=== PATIENT | male | born 1995 | race Caucasian/White ===

== ENCOUNTER 2019-06-18 18:52 | Inpatient (IN) ==
[2019-06-18] MEDS ORDERED: ZOFRAN IM ONE (19:16)
[2019-06-18] MEDS ORDERED: NS 1,000 ML IV ONE ×4 (19:16→22:48)
--- NOTE | 2019-06-18 19:23 | PROVIDER DOCUMENTATION ---
HPI-General Adult - General Chief Complaint: Nausea/Vomiting Stated Complaint: FLU SX Time Seen by Provider: 06/18/19 19:10 Source: patient Allergies/Adverse Reactions: Patient Allergies Allergy/AdvReac Type Severity Reaction Status Date / Time Penicillins Allergy RASH Verified 05/06/19 20:27 tramadol Allergy Unknown Verified 05/06/19 20:27 Home Medications: Home Medication List Medication Instructions Recorded Confirmed Last Taken Type Oxycodone HCl/Acetaminophen 1 tab PO BID 05/06/19 06/19/19 Unknown History [Percocet 10-325 mg Tablet] Promethazine [Phenergan] 25 mg PO Q6H PRN PRN #20 tab 05/07/19 06/19/19 Unknown Rx Ondansetron HCl [Zofran] 4 mg PO Q4H PRN PRN #20 tab 06/18/19 Unknown Rx - History of Present Illness -Gen Adult Nature of Presenting Problems: 23 year old male no significant pmh presenting today c/o vomiting fgor the past 2 days with non associated abdominal pain, or diarrhea, but he3 does endorse myalgia's and subjective fevers. Review of Systems - Adult - REVIEW OF SYSTEMS - ADULT Constitutional: reports: chills, fever (subjective), night sweats, other (myalgias) Eyes: reports: no symptoms reported Ears, Nose, Mouth & Throat: reports: no symptoms reported Cardiovascular: denies: chest pain, orthopnea, syncope Respiratory: denies: hemoptysis, shortness of breath, wheezing Gastrointestinal: reports: nausea, vomiting. denies: abdominal pain, marry temesis, diarrhea Genitourinary: reports: no symptoms reported Musculoskeletal: reports: no symptoms reported Integumentary: reports: no symptoms reported Neurological: reports: no symptoms reported Psychiatric: reports: no symptoms reported Endocrine: reports: no symptoms reported Hematologic/Lymphatic: reports: no symptoms reported Allergic/Immunologic: reports: no symptoms reported All Other Systems: Reviewed and Negative Past History - Adult - PAST MEDICAL HISTORY-ADULT Review of Records: reports: Nursing Assessment Review, Medications Reviewed, Social history reviewed & non-contributory. 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 Psychiatric: reports: denies history Endocrine/Immune: reports: denies history Other Conditions: reports: denies history Additional History: Spinal coard injury 90days ago - PRIOR SURGERIES/PROCEDURES Surgical/Procedure History: reports: tonsillectomy, back/neck (Spinal surgery) - PRIOR HOSPITALIZATIONS Prior Hospitalizations: reports: psychiatric or rehab (Rehab followin accident) - IMMUNIZATION STATUS Childhood Immunizations: See Nurse Assessment Flu Vaccine: See Nurse Assessment - FAMILY HISTORY Family History: reviewed, not pertinent - SOCIAL HISTORY Smoking: denies Substance Use: none/never Alcohol Use Frequency: occasionally Physical Exam-General - PHYSICAL EXAM-ADULT Initial Vital Signs Reviewed: Yes (stable) - CONSTITUTIONAL General Appearance: alert, no apparent distress, slow to respond - EYES Eyes: PERRL/EOMI - HEAD, EARS, NOSE, MOUTH & THROAT HENMT: normocephalic/atraumatic, pharyngeal erythema (posterior pharynx has the appearance of multiple episodes of emesis with associated erythema and emesis seen on the patient's tongue). negative: pharynx normal - NECK Neck: full range of motion, supple - RESPIRATORY Respiratory: chest non-tender, lungs clear, normal breath sounds, no pleuratic chest pain - CARDIOVASCULAR Cardiovascular: normal peripheral pulses, regular rate, rhythm, no edema, no murmur - GASTROINTESTINAL (ABDOMEN) Abdominal Exam: normal bowel sounds, non tender, soft - GENITOURINARY Rectal Exam: other (The patient does not have a fecal impaction on digital rectal exam) - MUSCULOSKELETAL Back Exam: normal inspection Extremity: normal range of motion Peripheral Pulses: radial (R): 2+, radial (L): 2+ - SKIN Integumentary: pallor - NEUROLOGIC Neurologic: grossly normal, no motor/sensory deficits - PSYCHIATRIC Psych/Mental Status: normal mood/affect, oriented x 3 Progress - PLAN OF CARE/RESULTS Progress/Plan/Lab Results: Vital Signs - 8 hr 06/18/19 18:54 Temperature 99 F Pulse Rate 91 H Respiratory Rate 18 Blood Pressure 126/78 O2 Sat by Pulse Oximetry 100 Orders Category Date Time Status CHEST-1 VIEW [RAD] Stat Exams 06/18/19 19:15 Ordered CBC WITH ELECTRONIC DIFF [HEME] Stat Lab 06/18/19 19:09 Uncollected COMPREHENSIVE METABOLIC PANEL [CHEM] Stat Lab 06/18/19 19:[address] Stat Lab 06/18/19 19:09 Uncollected LIPASE [CHEM] Stat Lab 06/18/19 19:15 Uncollected Ns 1000 ml IV Bolus X1 Med 06/18/19 19:16 Ordered 0.9% Sodium Chloride Inj [Ns] 1,000 ml IV 999 mls/hr Ondansetron [Zofran] Med 06/18/19 19:16 Once 4 mg IM NOW ONE Result Diagrams: 06/18/19 20:00 06/18/19 20:00 - XRAY 1 XRAY Study: Chest Impression: Normal (EXAM: CHEST-1 VIEW HISTORY: r/o PNA TECHNIQUE: Single view COMPARISON: 05/06/2019 FINDINGS: The lungs are well expanded. The heart is not enlarged. The vessels are not distended. There are no infiltrates. No effusion identified. IMPRESSION: No pneumonia Electronically signed by Mitchel Mujica 06/18/2019 7:57 PM 06/18/191956 Interpreting Physician: Mitchel Mujica MD Dictated Date/Time: 06/18/191956 cc: Jace Hylton DO; Corby Kumar MD) Departure - Departure Date of Disposition Decision: 06/18/19 Time of Disposition Decision: 01:03 (admitted inpatient) DIAGNOSIS: Vomiting alone, Hyponatremia, Hypokalemia due to excessive gastrointestinal loss of potassium, Neutrophilic leukocytosis, Dehydration Disposition: ADMITTED INPATIENT 09 Certified Medical Emergency: Emergent Condition: Stable - Critical Care Note This patient required my direct & personal management of CC.: No Attestation - Physician/ STEVEN Attestation Patient care was provided by Advanced Practice Provider:: No The physician spent face to face time with patient:: Yes Advanced Practice Provider documentation review:: Supervising physician onsite and consulted in the evaluation and care of this patient. The physician did have a face to face encounter with the patient.
--- NOTE | 2019-06-18 19:59 | Diag Imaging Result Doc PS360 ---
EXAM: CHEST-1 VIEW HISTORY: r/o PNA TECHNIQUE: Single view COMPARISON: 05/06/2019 FINDINGS: The lungs are well expanded. The heart is not enlarged. The vessels are not distended. There are no infiltrates. No effusion identified. IMPRESSION: No pneumonia Electronically signed by Mitchel Mujica 06/18/2019 7:57 PM
[2019-06-18 20:11] LABS: BASO# 0.02 X1000 (0.0-0.2); BASO% 0.1 % (0.0-0.8); HEMATOCRIT 37.9 % (42.0-52.0); HEMOGLOBIN 13.7 g/dL (14.0-18.0); IMM GRAN# 0.06 X1000 (0.0-0.04); IMM GRAN% 0.4 % (0.0-0.5); LYMPH# 0.91 X1000 (1.2-3.4); LYMPH% 5.5 % (20.5-51.1); MCH 30.2 PG (27-31); MCHC 36.1 g/dL (33-37); MCV 83.7 FL (81-99); MONO# 1.23 X1000 (0.11-0.59); MONO% 7.4 % (1.7-9.3); NEUT# 14.34 X1000 (1.4-6.5); NEUT% 86.6 % (42.2-75.2); PLT 200 X1000 (130-400); RBC 4.53 XMIL (4.7-6.1); RDW 11.4 % (11.5-14.5); WBC 16.56 X1000 (4.8-10.8)
[2019-06-18 20:32] LABS: AGAP 16; ALBUMIN 4.6 g/dL (3.5-5.0); ALKALINE PHOSPHATASE 90 U/L (32-122); BUN 10 mg/dL (8-22); CALCIUM 9.4 mg/dL (8.8-10.2); CHLORIDE 94 mmol/L (98-107); COSMO 265; CREATININE 0.6 mg/dL (0.7-1.2); ESTIMATED GFR > 60; GLUCOSE 131 mg/dL (70-104); GOT 14 U/L (10-34); GPT 11 U/L (10-44); INR 1.04; POTASSIUM 3.3 mmol/L (3.5-5.1); PROTIME 14.1 Seconds (11.0-16.0); SODIUM 132 mmol/L (136-145); TCO2 21 mmol/L (25-35); TOTAL PROTEIN 8.3 g/dL (6.3-8.3)
[2019-06-18 20:33] LABS: PTT 30.3 Seconds (22.3-41.8)
[2019-06-18 20:35] LABS: INFLUENZA A NEGATIVE (NEGATIVE); INFLUENZA B NEGATIVE (NEGATIVE)
[2019-06-18] MEDS ORDERED: KLOR-CON PO ONE (21:04)
[2019-06-18] MEDS ORDERED: COMPAZINE ONE (21:06)
[2019-06-18] MEDS ORDERED: COMPAZINE IV ONE (21:08)
--- NOTE | 2019-06-18 22:02 | Diag Imaging Result Doc PS360 ---
EXAM: CT ABD/PELVIS W/IV CONT ONLY HISTORY: abdominal pain TECHNIQUE: CT abdomen and pelvis with intravenous contrast, but without oral contrast. COMPARISON: None. FINDINGS: There has been extensive surgery to the lower thoracic and upper lumbar spine. The gallbladder is contracted. No calcified stones. Normal liver, pancreas, and adrenal glands. The spleen measures 13.8 cm in AP diameter. Normal kidneys. No hydronephrosis. Normal aorta. Normal appendix. No abscess. There is stool throughout the colon. No bowel obstruction. No ascites. The urinary bladder is distended and appears normal. Normal prostate. IMPRESSION: 1.Constipation 2.Mild splenomegaly This exam was performed using automated exposure control, adjustment of mA or kV according to patient size, and/or use of iterative reconstruction technique. Electronically signed by Mitchel Mujica 06/18/2019 9:59 PM
[2019-06-18 22:04] LABS: URINE SOURCE CLEAN CATCH
[2019-06-18 22:07] LABS: BILIRUBIN URINE NEGATIVE (NEGATIVE); BLOOD URINE TRACE (NEGATIVE); COLOR YELLOW; GLUCOSE URINE NEGATIVE (NEGATIVE); KETONE URINE 150 mg/dL (NEGATIVE); LEUKOCYTES URINE MODERATE (NEGATIVE); NITRITE URINE NEGATIVE (NEGATIVE); PH URINE 7.5; PROTEIN URINE 50 mg/dL (NEGATIVE); SP GRAVITY URINE 1.055; TURBIDITY URINE CLEAR (CLEAR); UR EPITHELIAL CELLS <10 /HPF (<10); URINE BACTERIA 4+ /HPF; URINE RBC <10 /HPF (<10); URINE WBC TNTC /HPF (<10); UROBILINOGEN URINE 4 mg/dL (NORMAL)
[2019-06-18] MEDS ORDERED: LEVAQUIN 750 MG/D5W 750 MG/150 ML IVPB IV ONE (22:47)
[2019-06-18] MEDS: ZOFRAN IV PRN (23:46)
[2019-06-19] MEDS: ZOFRAN IV PRN ×2 (08:23→12:31)
[2019-06-19 09:16] LABS: HEMATOCRIT 33.8 % (42.0-52.0); HEMOGLOBIN 11.4 g/dL (14.0-18.0); MCH 29.2 PG (27-31); MCHC 33.7 g/dL (33-37); MCV 86.4 FL (81-99); MPV 9.7 FL (7.4-10.4); RBC 3.91 XMIL (4.7-6.1); RDW 11.7 % (11.5-14.5); WBC 11.11 X1000 (4.8-10.8)
[2019-06-19 09:30] LABS: AGAP 12; ALBUMIN 3.8 g/dL (3.5-5.0); ALKALINE PHOSPHATASE 66 U/L (32-122); BUN 6 mg/dL (8-22); CALCIUM 8.2 mg/dL (8.8-10.2); CHLORIDE 105 mmol/L (98-107); COSMO 275; CREATININE 0.5 mg/dL (0.7-1.2); ESTIMATED GFR > 60; GLUCOSE 104 mg/dL (70-104); GOT 9 U/L (10-34); GPT 8 U/L (10-44); POTASSIUM 3.8 mmol/L (3.5-5.1); SODIUM 139 mmol/L (136-145); TCO2 22 mmol/L (25-35); TOTAL PROTEIN 6.7 g/dL (6.3-8.3)
--- NOTE | 2019-06-19 10:28 | HISTORY AND PHYSICAL ---
PRIMARY CARE PHYSICIAN: Dr. Croby Kumar. CHIEF COMPLAINT: Nausea and vomiting over the past 2 days, with a subjective fever and myalgias that progressively worsened. HISTORY OF PRESENTING ILLNESS: This is a 23-year-old, male, who presents to [facility] ER with complaints of nausea and vomiting over the past 2 days. States he has vomited anywhere from 15 to 20 times. Also had some subjective fever and myalgias. When he arrived, his workup showed a white blood cell count of 16.56. His sodium was 132, potassium 3.3. Urinalysis showed negative nitrites, moderate leukocytes, and 4+ bacteria. CT of the abdomen and pelvis showed constipation and mild splenomegaly, so he was admitted for further evaluation and treatment. 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 PAST SURGICAL HISTORY: Lumbar fusion, tonsillectomy, and a left femur fracture repair. FAMILY HISTORY: Reviewed and noncontributory. SOCIAL HISTORY: Currently lives with family. Denies any tobacco or alcohol, and uses marijuana occasionally. ALLERGIES: Penicillin and tramadol. HOME MEDICATIONS: He takes Percocet 10 one p.o. b.i.d. Phenergan 25 mg p.o. every 6 hours p.r.n. will be held. IMAGING AND LABORATORY DATA: Laboratory data showed a white blood cell count of 16.56, hemoglobin 13.7, hematocrit 37.9, platelets 200,000. PT and INR of 14.1 and 1.04. Sodium of 132, potassium 3.3, chloride 94, CO2 of 21, BUN of 10, creatinine 0.6, glucose 131. Cardiac enzyme was negative. Plasma lactate of 1.0. Urinalysis showed negative nitrites, moderate leukocytes, 4+ bacteria. Mononucleosis screen was negative. Influenza A and B were both negative. Chest x-ray showed no pneumonia. CT of the abdomen and pelvis with IV contrast only showed constipation and mild splenomegaly. REVIEW OF SYSTEMS: He had a subjective fever, myalgia. Denied any blurred vision, dizziness, chest pain, coughing, shortness of breath. Denied any abdominal pain. Did have nausea, vomiting, constipation. Denied any diarrhea or burning or hurting with urination. PHYSICAL EXAMINATION: VITAL SIGNS: On arrival, he had a temperature of 99 degrees, pulse 91, respirations 18, blood pressure 126/78, saturating 100% on room air. GENERAL: This is a 23-year-old male who is lying in the bed and answers questions appropriately. HEENT: Normocephalic, atraumatic. Normal ENT inspection. Oropharynx and nares are clear. Eyes: Pupils are equal, round, and reactive to light and accommodation. Extraocular movements are intact. NECK: Normal inspection. Normal range of motion. LUNGS: Clear to auscultation bilaterally with equal lung expansion and chest wall movement. HEART: Regular rate and rhythm. No murmurs, rubs, or gallops. ABDOMEN: Soft, nontender, nondistended. Bowel sounds are present x4 quadrants. MUSCULOSKELETAL: Normal inspection. Normal range of motion. NEUROLOGICAL: The cranial nerves II through XII are grossly intact. ASSESSMENT: 1. Nausea and vomiting. 2. Urinary tract infection. 3. Leukocytosis secondary to #1. 4. Hypokalemia. 5. Urinary tract infection. PLAN: He was admitted to the medical unit and placed on telemetry. Will place him on a full liquid diet. Blood cultures and urine culture are both pending. Will place him on Levaquin 750 mg IV every 24 hours, Zofran 4 mg IV every 4 hours p.r.n. He received 3 L boluses of normal saline and a liter at 125 mL. He was given potassium 60 mEq p.o. x1 in the emergency room. His potassium has come back up to 3.8. Sodium has returned to normal at 139 this morning. Further orders after seen by attending. Dictated by SHANDA Howard for Wallace Galo MD cc: SHANDA Howard MD Malcolm R. Hendricks, MD
[2019-06-19] MEDS: PERCOCET-10 PO SCH ×2 (11:12→20:20)
[2019-06-19] MEDS: NS 1,000 ML IV SCH (12:31)
--- NOTE | 2019-06-19 13:38 | PROGRESS NOTE ---
DATE: 06/19/2019 The patient was seen and examined by myself. Full note dictated and discussed with nurse practitioner. The patient presented to the hospital with nausea and vomiting. Notes that he started having symptoms 2 days ago. He has had significant vomiting, has been unable to keep anything down. He has been generally weak and fatigued. We are going to admit him to the hospital. IV fluids, Zofran, Phenergan as needed, and will follow. cc: Wallace Galo MD
[2019-06-19] MEDS: PHENERGAN IV PRN ×2 (19:54→23:56)
[2019-06-19] MEDS: LEVAQUIN 750 MG/D5W 750 MG/150 ML IVPB IV SCH (22:59)
[2019-06-20] MEDS: NS 1,000 ML IV SCH ×2 (01:08→15:30)
[2019-06-20] MEDS: SODIUM CHLORIDE 0.9% INJ PRN ×4 (04:00→23:17)
[2019-06-20] MEDS: PHENERGAN IV PRN ×4 (04:01→23:17)
[2019-06-20 05:58] LABS: HEMATOCRIT 35.9 % (42.0-52.0); HEMOGLOBIN 12.2 g/dL (14.0-18.0); MCH 29.4 PG (27-31); MCV 86.5 FL (81-99); MPV 10.8 FL (7.4-10.4); RBC 4.15 XMIL (4.7-6.1); RDW 11.6 % (11.5-14.5); WBC 8.87 X1000 (4.8-10.8)
[2019-06-20 06:21] LABS: AGAP 16; ALBUMIN 4.1 g/dL (3.5-5.0); ALKALINE PHOSPHATASE 84 U/L (32-122); BUN 6 mg/dL (8-22); CALCIUM 8.8 mg/dL (8.8-10.2); CHLORIDE 103 mmol/L (98-107); COSMO 277; CREATININE 0.5 mg/dL (0.7-1.2); ESTIMATED GFR > 60; GLUCOSE 94 mg/dL (70-104); GOT 11 U/L (10-34); GPT 10 U/L (10-44); MAGNESIUM 1.9 mg/dL (1.5-2.7); POTASSIUM 3.4 mmol/L (3.5-5.1); SODIUM 140 mmol/L (136-145); TCO2 21 mmol/L (25-35); TOTAL PROTEIN 7.3 g/dL (6.3-8.3)
[2019-06-20] MEDS: PERCOCET-10 PO SCH (10:26)
[2019-06-20] MEDS ORDERED: PHENERGAN IV ONE (11:36)
[2019-06-20] MEDS ORDERED: SODIUM CHLORIDE 0.9% INJ ONE (11:36)
[2019-06-20] MEDS ORDERED: SODIUM CHLORIDE 0.9% INJ PRN (11:36)
[2019-06-20] MEDS: REGLAN IV SCH ×2 (12:01→21:09)
[2019-06-20 13:30] LABS: UR AMPHETAMINES QUAL NONE DETECTED (NONE DETECT); UR BARBITUATES QUAL NONE DETECTED (NONE DETECT); UR BENZODIAZEPIN QUAL NONE DETECTED (NONE DETECT); UR CANNABINOIDS QUAL PRESUMPTIVE POSITIVE (NONE DETECT); UR COCAINE QUAL NONE DETECTED (NONE DETECT); UR METHADONE QUAL NONE DETECTED (NONE DETECT); UR METHAMPHETAMINE QUAL PRESUMPTIVE POSITIVE (NONE DETECT); UR OPIATES QUAL PRESUMPTIVE POSITIVE (NONE DETECT); UR OXYCODONE QUAL PRESUMPTIVE POSITIVE (NONE DETECT)
[2019-06-20 13:31] LABS: UR PCP QUAL NONE DETECTED (NONE DETECT); UR PROPOXYPHENE QUAL NONE DETECTED (NONE DETECT); UR TCA QUAL NONE DETECTED (NONE DETECT)
--- NOTE | 2019-06-20 14:58 | PROGRESS NOTE ---
DATE: 06/20/2019 SUBJECTIVE: The patient is just still persistently vomiting. He will just not control vomiting. OBJECTIVE: Vital Signs: Blood pressure is 114/74, heart rate of 88, respiratory rate 14, temperature afebrile. Cardiovascular: Regular rate and rhythm. Pulmonary: Bilateral breath sounds. Clear to auscultation. GI: Soft, nontender, nondistended. Bowel sounds are positive. LABORATORY DATA: White count is 8, hemoglobin and hematocrit stable platelets 211,000. Potassium 3.4. Urine drug screen showed opiates, oxycodone, methamphetamines, and cannabinoids, so there are reportedly people in his room possibly rolling or doing drugs by nursing report, but will continue to monitor. PROBLEM LIST: 1. Intractable nausea and vomiting. He is on Zofran, Reglan now, Phenergan. Will add Benadryl. Hopefully, we can get this under control. I am not sure if this is related to a withdrawal- type syndrome or some other issues there, hard to say. 2. Urinary tract infection. He does have a gram-negative huan urinary tract infection. He is quadriplegic, so hard to say if it is symptomatic. He is on Levaquin currently. 3. Constipation. He has not had a bowel movement. We will start suppositories and follow. This may also be contributing to his nausea and vomiting. 4. Disposition. He has to be able to tolerate by mouth before we can do anything from that standpoint. We will continue to monitor. cc: Herman Biggs MD MTDD
[2019-06-20] MEDS: BENADRYL IV PRN (16:50)
[2019-06-20] MEDS: DULCOLAX PR SCH (16:51)
[2019-06-20] MEDS: LEVAQUIN 750 MG/D5W 750 MG/150 ML IVPB IV SCH (23:17)
[2019-06-21] MEDS: NS 1,000 ML IV SCH ×3 (01:56→21:17)
[2019-06-21] MEDS: REGLAN IV SCH ×3 (03:00→21:18)
[2019-06-21] MEDS: PHENERGAN IV PRN ×3 (04:15→13:19)
[2019-06-21] MEDS: BENADRYL IV PRN (04:15)
[2019-06-21 06:14] LABS: BASO# 0.05 X1000 (0.0-0.2); BASO% 0.5 % (0.0-0.8); EOS# 0.02 X1000 (0.0-0.7); EOS% 0.2 % (0.0-10.0); HEMATOCRIT 34.9 % (42.0-52.0); HEMOGLOBIN 12.1 g/dL (14.0-18.0); IMM GRAN# 0.04 X1000 (0.0-0.04); IMM GRAN% 0.4 % (0.0-0.5); LYMPH# 1.87 X1000 (1.2-3.4); LYMPH% 20.5 % (20.5-51.1); MCH 29.5 PG (27-31); MCHC 34.7 g/dL (33-37); MCV 85.1 FL (81-99); MONO# 0.99 X1000 (0.11-0.59); MONO% 10.9 % (1.7-9.3); MPV 10.6 FL (7.4-10.4); NEUT# 6.15 X1000 (1.4-6.5); NEUT% 67.5 % (42.2-75.2); PLT 252 X1000 (130-400); RDW 11.5 % (11.5-14.5); WBC 9.12 X1000 (4.8-10.8)
[2019-06-21 06:48] LABS: AGAP 17; BUN 5 mg/dL (8-22); CALCIUM 8.4 mg/dL (8.8-10.2); CHLORIDE 102 mmol/L (98-107); COSMO 270; CREATININE 0.6 mg/dL (0.7-1.2); ESTIMATED GFR > 60; GLUCOSE 81 mg/dL (70-104); POTASSIUM 3.2 mmol/L (3.5-5.1); SODIUM 137 mmol/L (136-145); TCO2 19 mmol/L (25-35)
[2019-06-21 07:31] LABS: EOS 1 % (1-10); LYMPHS 16 % (21-51); MONO 6 % (1-9); SEGS 77 % (42-75)
[2019-06-21] MEDS: DULCOLAX PR SCH (08:43)
[2019-06-21] MEDS: SODIUM CHLORIDE 0.9% INJ PRN ×2 (08:43→13:20)
[2019-06-21] MEDS ORDERED: PROTONIX IV SCH (12:15)
--- NOTE | 2019-06-21 12:33 | PROGRESS NOTE ---
DATE: 06/21/2019 SUBJECTIVE: He feels better today, less uncomfortable. He has not thrown up in about 12 hours, but he has not eaten anything. OBJECTIVE: Blood pressure 127/79, heart rate 93, respiratory rate 18, temperature 99.4 degrees, and 100% on room air.Cardiovascular: Regular rate and rhythm. Pulmonary: Bilateral breath sounds. Clear to auscultation. GI: Abdomen was soft, nontender, and nondistended. Bowel sounds are positive. Extremities: No clubbing or cyanosis. Lymphatic: No peripheral edema. Neurological: Nonfocal. LABORATORY DATA: White count is 9, hemoglobin and hematocrit 12 and 34, and platelets 252,000. Potassium is 3.2. PROBLEM LIST: 1. Intractable nausea and vomiting, it seems better now. We are going to advance his diet and follow closely. 2. Klebsiella pneumonia UTI. He is currently on Levaquin, and seems to be doing okay from that standpoint. We will continue antibiotics. 3. Constipation. We will start some laxatives this evening if he tolerates p.o. without difficulty. DISPOSITION: Pending clinical status. I think he will be okay at least with another day here. We do need to probably clean him out a little bit. cc: Herman Biggs MD
[2019-06-21] MEDS: SODIUM CHLORIDE 0.9% INJ SCH ×2 (13:19→13:20)
[2019-06-21] MEDS ORDERED: PERCOCET-5 PO PRN (14:33)
[2019-06-21] MEDS: LEVAQUIN 750 MG/D5W 750 MG/150 ML IVPB IV SCH (21:41)
[2019-06-21] MEDS: LACTULOSE PO SCH (21:42)
[2019-06-22] MEDS: REGLAN IV SCH (04:15)
[2019-06-22] MEDS: LACTULOSE PO SCH ×3 (04:32→08:31)
[2019-06-22 06:39] LABS: AGAP 15; BUN 4 mg/dL (8-22); CALCIUM 8.6 mg/dL (8.8-10.2); CHLORIDE 100 mmol/L (98-107); COSMO 270; CREATININE 0.7 mg/dL (0.7-1.2); ESTIMATED GFR > 60; GLUCOSE 82 mg/dL (70-104); POTASSIUM 3.7 mmol/L (3.5-5.1); SODIUM 137 mmol/L (136-145); TCO2 21 mmol/L (25-35)
[2019-06-22 06:44] LABS: BASO% 2.3 % (0.0-0.8); EOS# 0.11 X1000 (0.0-0.7); EOS% 1.3 % (0.0-10.0); HEMATOCRIT 36.3 % (42.0-52.0); HEMOGLOBIN 12.9 g/dL (14.0-18.0); IMM GRAN# 0.05 X1000 (0.0-0.04); IMM GRAN% 0.6 % (0.0-0.5); LYMPH# 2.84 X1000 (1.2-3.4); LYMPH% 32.3 % (20.5-51.1); MCH 30.1 PG (27-31); MCHC 35.5 g/dL (33-37); MCV 84.8 FL (81-99); MONO# 1.07 X1000 (0.11-0.59); MONO% 12.2 % (1.7-9.3); MPV 10.2 FL (7.4-10.4); NEUT# 4.52 X1000 (1.4-6.5); NEUT% 51.3 % (42.2-75.2); PLT 289 X1000 (130-400); RBC 4.28 XMIL (4.7-6.1); RDW 11.5 % (11.5-14.5); WBC 8.79 X1000 (4.8-10.8)
[2019-06-22 07:26] LABS: LYMPHS 34 % (21-51); MONO 10 % (1-9); POLYCHROM OCCASIONAL; SEGS 56 % (42-75)
[2019-06-22 07:55] VITALS: BP 120/62
[2019-06-22] MEDS: NS 1,000 ML IV SCH (08:24)
[2019-06-22] MEDS: DULCOLAX PR SCH (08:30)
[2019-06-22] MEDS ORDERED: MIRALAX PO SCH ×2 (09:00→17:00)
--- NOTE | 2019-06-22 15:26 | DISCHARGE SUMMARY ---
ADMISSION DATE: 06/19/2019 DISCHARGE DATE: 06/22/2019 DISCHARGE ADDENDUM: He is doing well day of discharge, tolerating p.o. He has had a bowel movement. No major complaints. OBJECTIVE: Stable vital signs. No fever. Cardiovascular: Regular rate and rhythm. Pulmonary: Bilateral breath sounds, clear to auscultation. GI: Soft, nontender, nondistended. Bowel sounds are positive. LABORATORY DATA: White count is 8, hemoglobin and hematocrit 12.9 and 36, platelets 289,000. Rest of the lab work looks good, so we will discharge him today. MiraLAX for chronic constipation. Levaquin for his Klebsiella pneumonia, UTI and some p.r.n. Phenergan as needed. This is a [id number] encounter note with Luanne Bianchi. cc: Herman Biggs MD
--- NOTE | 2019-06-22 15:41 | DISCHARGE SUMMARY ---
ADMISSION DATE: 06/19/2019 DISCHARGE DATE: 06/22/2019 PRIMARY CARE PHYSICIAN: Dr. Corby Kumar. ADMISSION DIAGNOSES: 1. Nausea, vomiting. 2. Urinary tract infection. 3. Leukocytosis, secondary to #2. 4. Hypokalemia. DISCHARGE DIAGNOSES: 1. Nausea and vomiting, resolved. 2. Klebsiella pneumoniae UTI. 3. Leukocytosis, resolved. 4. Hypokalemia, resolved. SUMMARY OF FINDINGS: This is a 23-year-old male who presented with nausea, vomiting over the past 2 days prior to arriving stating that he had vomited anywhere from 15 to 20 times, had some subjective fever and myalgias. Workup showed a white blood cell count of 16.56. Sodium was 132, potassium 3.3. Urinalysis showed negative nitrites, but moderate leukocytes and 4+ bacteria. CT of the abdomen and pelvis showed constipation and mild splenomegaly. He was admitted, placed on a full liquid diet, placed him on Levaquin 750 mg IV every 24. His urine culture grew out a Klebsiella pneumoniae that was being treated appropriately. His white blood cell count has returned to normal. He was given fluid resuscitation. We supplemented his potassium and it returned to normal. He is tolerating a GI soft diet, has remained afebrile for greater than 24 hours and it is now felt that he can safely be discharged home. DISCHARGE MEDICATIONS: Include a prescription for Levaquin 500 mg p.o. daily #7 with no refills, Zofran 4 mg p.o. q. 4 hours p.r.n. #20 with no refills, MiraLAX 17 g p.o. daily and Phenergan 25 mg p.o. q. 6 hours p.r.n. #20 with no refills and continue his home Percocet 10 one p.o. b.i.d. FOLLOWUP: He will need to follow up with his primary care physician in 1 to 2 weeks and call the office for an appointment. This is a 35 minute discharge. Dictated by SHANDA Howard for Herman Biggs MD cc: SHANDA Howard MD
== END 2019-06-22 10:59 | disposition home or self-care (01) | DRG 690 ==
LOC: P.ED 18:52 → P.MEDSURG 06-19 00:13 → SUATTDRO 06-19 00:13
PROVIDERS: ADMIT Internal Medicine; ATTEND Internal Medicine